=== PATIENT | male | born 2000 ===

== ENCOUNTER 2024-03-17 11:48 | Emergency (ER) | payer BC, SELFPAY ==
[2024-03-17 12:06] VITALS: BP 111/75; PULSE 69; RESP 18; TEMP 36.3; O2SAT 100; BMI 22.5
--- NOTE | 2024-03-17 12:33 | CRLHL7_ITS ---
For Patients: As a result of the 21st Century Cures Act, medical imaging exams and procedure reports are released immediately into your electronic medical record. You may view this report before your referring provider. If you have questions, please contact your health care provider. INDICATION: Right lower quadrant abdominal pain. COMPARISON: None TECHNIQUE: CT examination of the abdomen and pelvis was performed following the uneventful intravenous administration of 89 cc of Omnipaque 350. Thin section axial images were obtained from the lung bases through the pubic symphysis. Oral contrast was not administered. Please note that all CT scans at this facility use dose modulation, iterative reconstruction, and/or weight-based dosing when appropriate to reduce radiation dose to as low as reasonably achievable. FINDINGS: LUNG BASES: The lung bases as visualized appear normal.The heart size is normal at the lung bases. LIVER/BILIARY SYSTEM:The liver is normal in size and configuration. There is no focal mass and there is no intra- or extra hepatic biliary ductal dilatation.The gall bladder appears normal. ADRENALS: Normal KIDNEYS, URETERS and BLADDER:No definitive intrarenal calculi identified though contrast may obscure small calculi. [place] right renal lesion measuring about 1 centimeter probably a cyst. There is right-sided obstructive uropathy due to a cylindrical calculus at the right ureterovesical junction. This measures about 4.5 millimeters in length and about 1.9 millimeters in diameter. No calculi within the bladder. SPLEEN:Normal. PANCREAS: Appears normal. RETROPERITONEUM and MESENTERY: There is no mass, adenopathy or aortic aneurysm. GASTROINTESTINAL SYSTEM: There is no evidence of diverticulitis, colitis, mechanical obstruction, or appendicitis. The small bowel as visualized appears normal. PELVIS: No mass, adenopathy or free fluid. OSSEOUS STRUCTURES and ABDOMINAL WALL: There is an age-appropriate appearance of the osseous structures.No significant abdominal wall defect. OTHER: No free fluid or free air. IMPRESSION: Right-sided obstructive uropathy due to a cylindrical calculus at the right ureterovesical junction measuring about 4.5 x 1.9 millimeters. No definite intrarenal calculi. The examination is otherwise overall unremarkable. Please note that all CT scans at this facility use dose modulation, iterative reconstruction, and/or weight-based dosing when appropriate to reduce radiation dose to as low as reasonably achievable. Dictated by Aric Swenson MD @ 03/17/2024 1:27:54 PM (Electronically Signed)
--- NOTE | 2024-03-17 12:35 | ED.ABDPAIN ---
HPI - Abdominal Pain General Chief Complaint: Abdominal Pain Stated Complaint: RT sided abdominal pain Time Seen by Provider: 03/17/24 12:19 History of Present Illness HPI narrative: This 23-year-old male comes in reporting severe pain in his right lower quadrant it started about an hour prior to arrival. He is rather dramatic and reports nausea and vomiting. He denies using any medications or street drugs. He does not use marijuana. Prior to this he has been in good health. He states that the pain is worse with standing upright. He arrives here with normal vital signs. Related Data Previous Rx's ?Medication ?Instructions ?Recorded hydrocodone 5 mg-acetaminophen 325 1 tab PO Q4-6H PRN pain #15 tabs 03/17/24 mg tablet ketorolac 10 mg tablet 10 mg PO Q8H 5 days #15 tabs 03/17/24 ondansetron HCl 4 mg tablet 4 mg PO Q6H #10 tabs 03/17/24 Allergies Allergy/AdvReac Type Severity Reaction Status Date / Time No Known Drug Allergies Allergy Verified 03/17/24 13:18 Review of Systems Status of ROS Reports: 10 or more systems reviewed and unremarkable except as noted in History and below Narrative Constitutional: No fevers, no weight gain or loss. Eyes: No discharge. No vision changes. HENT: No congestion, no sore throat, no ear pain. Cardiovascular: No chest pain, no palpitations. Respiratory: No shortness of breath, no wheezes, no cough. Gastrointestinal: Abdominal pain localized in the right lower quadrant. Nausea with vomiting. Genitourinary: No dysuria, no hematuria. Musculoskeletal: Normal range of motion. Skin: No rashes, no pruritis. Neurological: No dizziness, weakness, sensory change, speech change. Endo/Heme/Allergies: No bruising or bleeding. No polydipsia. Pysch: no suicidality, no anxiety, no insomnia. All other systems reviewed and are negative. PFSH PFSH Social History Smoking Status: Never smoker Do you use any of these nicotine containing products: None How often do you have a drink containing alcohol: never How often do you have six or more drinks on one occasion: Never AUDIT-C Alcohol total score: 0 Non-prescribed substance use: denies use Exam Narrative: Exam Narrative: Constitutional: Well-developed, well-nourished, no acute distress. HEENT: Normocephalic, atraumatic. Neck: Normal range of motion. Nontender. Supple. Heart: Regular. No murmurs. Normal rate. Intact distal pulses. Lungs: Clear to auscultation. No chest discomfort. No wheezes, rhonchi, or rales. Abdomen: Tenderness localized in the right lower quadrant. Nausea with vomiting. Genitalia: Deferred. Back: No midline tenderness. Normal range of motion. Extremities: Normal range of motion. No injury. Skin: Intact. No rash. Warm. No erythema or pallor. Neurologic: No altered sensation. No weakness. Alert and oriented. Psychiatric: No suicidality. No anxiety or depression. No insomnia. Nursing notes and vitals signs are reviewed. Const: Vital Signs, click to edit/add: Vital Signs - 24 hr 03/17/24 12:06 Temperature 97.4 F L Pulse Rate [Right Pulse Oximeter] 69 Respiratory Rate 18 Blood Pressure [Ri ght Upper Arm] 111/75 Pulse Oximetry 100 Oxygen Delivery Me thod Room Air Course Vital Signs Vital signs: Initial Vital Signs Temperature 97.4 F L 03/17/24 12:06 Temperature Source Temporal Artery Scan 03/17/24 12:06 Pulse Rate 69 03/17/24 12:06 Pulse Rhythm Regular 03/17/24 12:06 Respiratory Rate 18 03/17/24 12:06 Blood Pressure 111/75 03/17/24 12:06 Blood Pressure Mean 87 03/17/24 12:06 Blood Pressure Position Sitting 03/17/24 12:06 Pulse Oximetry 100 03/17/24 12:06 Oxygen Delivery Method Room Air 03/17/24 12:06 Vital Signs Temperature 97.4 F L 03/17/24 12:06 Pulse Rate 69 03/17/24 12:06 Respiratory Rate 18 03/17/24 12:06 Blood Pressure 111/75 03/17/24 12:06 Pulse Oximetry 100 03/17/24 12:06 Oxygen Delivery Method Room Air 03/17/24 12:06 Temperature 97.4 F L 03/17/24 12:06 Pulse Rate 69 03/17/24 12:06 Respiratory Rate 18 03/17/24 12:06 Blood Pressure 111/75 03/17/24 12:06 Pulse Oximetry 100 03/17/24 12:06 Oxygen Delivery Method Room Air 03/17/24 12:06 Medications Administered Medications: Discontinued Medications Generic Name Dose Route Start Last Admin Trade Name Josee PRN Reason Stop Dose Admin Hydromorphone HCl 0.5 mg 03/17/24 12:33 03/17/24 12:38 Hydromorphone 0.5 Mg/0.5 Ml Inj IVP 03/17/24 12:34 0.5 mg ONCE ONE Administration Ketorolac Tromethamine 30 mg 03/17/24 13:14 03/17/24 13:25 Ketorolac 30 Mg/Ml Inj IVP 03/17/24 13:15 30 mg ONCE ONE Administration Ondansetron HCl 4 mg 03/17/24 12:33 03/17/24 12:39 Ondansetron 2 Mg/Ml Inj IVP 03/17/24 12:34 4 mg ONCE ONE Administration MDM - Abdominal Pain MDM Narrative Medical decision making narrative: This 23-year-old male comes in with severe right lower quadrant abdominal pain assist with associated nausea and vomiting. An IV was established where he received Dilaudid 0.5 mg, Zofran 4 mg, and Toradol 30 mg. The Toradol brought great relief to his symptoms. A CT scan of the abdomen and pelvis is obtained and shows evidence of a renal calculus at the right ureterovesical junction. It measures approximately 4 x 2 mm. Other lab results returned with reassuring findings. The patient has not had a prior incidence of kidney stone. I did discuss with him various facts regarding management and recurrence. He is okay to be discharged home and received prescriptions for Toradol, Zofran, and [place]. Lab Data Labs: Lab Results 03/17/24 Range/Units 12:20 WBC 9.84 (4.50-11.00) K/uL RBC 5.00 (4.30-5.90) m/uL Hgb 15.0 (13.5-17.5) gm/dL Hct 42.7 (37.0-53.0) % MCV 85 (80-100) fL MCH 30 (26-34) pg MCHC 35 (32-36) gm/dL RDW Coeff of Lance 11.8 (11.5-15.5) % Plt Count 175 (140-440) K/uL Neut % (Auto) 74.7 H (42.0-72.0) % Lymph % (Auto) 13.7 L (20-44) % [place]borne % (Auto) 10.5 (0.0-11.0) % Eos % (Auto) 0.8 (0.0-7.0) % Baso % (Auto) 0.1 (0.0-3.0) % Neut # (Auto) 7.40 H (1.7-7.0) K/uL Lymph # (Auto) 1.30 (0.90-2.90) K/uL [place]borne # (Auto) 1.00 H (0.00-0.90) K/UL Eos # (Auto) 0.08 (0.00-0.50) K/uL Baso # (Auto) 0.01 (0.00-0.30) K/uL Abs Immat Gran (auto) 0.02 (0.00-0.30) K/uL Imm/Tot Granulo (auto) 0.2 % Sodium 139 (135-149) mmol/L Potassium 3.4 L (3.6-5.1) mmol/L Chloride 104 (96-114) mmol/L Carbon Dioxide 19 L (20-32) mmol/L Anion Gap 16 H (7-15) mEq/L BUN 25 H (5-24) mg/dL Creatinine 1.2 (0.5-1.5) mg/dL Estimated Creat Clear 111.51 Estimated GFR 88 ml/min Glucose 120 H (60-115) mg/dL Calcium 10.2 (8.4-10.6) mg/dL Total Bilirubin 2.9 H (0.1-1.5) mg/dL Direct Bilirubin 0.3 (0.0-0.5) mg/dL AST 27 (12-35) U/L ALT 20 (4-50) U/L Alkaline Phosphatase 69 (40-150) U/L Total Protein 7.8 (6.0-8.3) g/dL Albumin 5.4 H (3.3-5.0) g/dL Lipase 38 (23-300) U/L Imaging Data CT scan - abdomen: Radiologist's impression: Right-sided obstructive uropathy due to a cylindrical calculus at the right ureterovesical junction measuring about 4.5 x 1.9 millimeters. No definite intrarenal calculi. The examination is otherwise overall unremarkable. Discharge Plan Discharge Clinical Impression: Calculus, ureteral Patient Disposition: Home w/ Parent or Adult Condition: Improved Additional Instructions: Take medication as needed and directed. Follow up with MD or return if symptoms are persistent or worsening. Prescriptions: New hydrocodone-acetaminophen 5-325 mg tablet 1 tab PO Q4-6H PRN (Reason: pain) Qty: 15 0RF ondansetron HCl 4 mg tablet 4 mg PO Q6H Qty: 10 0RF ketorolac 10 mg tablet 10 mg PO Q8H 5 Days Qty: 15 0RF Follow Up/Referrals: Helder Redmond MD [Primary Care Provider] - Stand Alone Forms: [employer] Info Instructions
[2024-03-17] MEDS: HYDROmorphone 0.5 mg/0.5 ml inj IVP (12:38)
[2024-03-17] MEDS: ONDANSETRON 2 MG/ML inj 4 MG IVP (12:39)
[2024-03-17 12:42] LABS: Basophils Absolute Auto 0.01 K/uL (0.00-0.30); Basophils Percent Auto 0.1 % (0.0-3.0); Eosinophils Absolute Auto 0.08 K/uL (0.00-0.50); Eosinophils Percent Auto 0.8 % (0.0-7.0); Hematocrit 42.7 % (37.0-53.0); Immature Granulocytes Abs Auto 0.02 K/uL (0.00-0.30); Immature Granulocytes Pct Auto 0.2 %; Lymphocytes Percent Auto 13.7 % (20-44); Mean Corpuscular HGB Conc 35 gm/dL (32-36); Mean Corpuscular Hemoglobin 30 pg (26-34); Mean Corpuscular Volume 85 fL (80-100); Monocytes Percent Auto 10.5 % (0.0-11.0); Neutrophils Percent Auto 74.7 % (42.0-72.0); Platelet Count* 175 K/uL (140-440); RDW Coefficient of Variation % 11.8 % (11.5-15.5); White Blood Count* 9.84 K/uL (4.50-11.00)
[2024-03-17 12:44] LABS: Slide Review Reflex No
[2024-03-17 13:05] LABS: Albumin* 5.4 g/dL (3.3-5.0)
[2024-03-17 13:06] LABS: Chloride* 104 mmol/L (96-114); Potassium* 3.4 mmol/L (3.6-5.1); Sodium* 139 mmol/L (135-149)
[2024-03-17 13:08] LABS: Anion Gap 16 mEq/L (7-15); Bilirubin Direct* 0.3 mg/dL (0.0-0.5); Bilirubin Total* 2.9 mg/dL (0.1-1.5); Carbon Dioxide* 19 mmol/L (20-32); Creatinine* 1.2 mg/dL (0.5-1.5); Est. Creatinine Clearance* 111.51; Estimated Glomerular Filt Rate 88 ml/min; Total Protein* 7.8 g/dL (6.0-8.3)
[2024-03-17 13:09] LABS: Alanine Aminotransferase* 20 U/L (4-50); Alkaline Phosphatase* 69 U/L (40-150); Aspartate Amino Transferase* 27 U/L (12-35); Blood Urea Nitrogen* 25 mg/dL (5-24); Calcium* 10.2 mg/dL (8.4-10.6); Glucose* 120 mg/dL (60-115); Lipase* 38 U/L (23-300)
[2024-03-17] MEDS: KETOROLAC 30 MG/ML inj IVP (13:25)
[2024-03-17 14:27] VITALS: BP 107/89; RESP 18; O2SAT 100
== END 2024-03-17 14:28 | disposition home or self-care (01) ==
PROVIDERS: Emergency Provider Emergency Medicine Emergency Medical Services; PCP Family Medicine
DX: N20.1 Calculus of ureter (principal)
CPT/HCPCS: 36415; 74177; 80048; 80076; 83690; 85025; 96374; 96375; 99284; J1170; J1885; J2405; Q9967